=== PATIENT | female | born 1995 | race Two or more races ===

== ENCOUNTER 2018-05-11 13:49 | Outpatient (CLI) | payer BC ==
[2018-05-11 13:55] VITALS: BP 119/75
== END 2018-05-11 23:59 | disposition home or self-care (01) ==
LOC: MSC 13:49
PROVIDERS: ATTEND Internal Medicine
DX: Z00.00 Encounter for general adult medical examination without abnormal findings (principal)

== ENCOUNTER 2019-05-11 23:13 | Emergency (ER) | payer SELFPAY ==
[~2019-05-11] VITALS: Ht 162.6 cm; Wt 59.0 kg
[2019-05-11 23:16] VITALS: BP 107/62
[2019-05-11] MEDS ORDERED: ACETAMINOPHEN ES 500 MG TABLET ONE (23:38)
[2019-05-12] MEDS ORDERED: ACETAMINOPHEN ES 500 MG TABLET PO ONE
== END 2019-05-11 23:48 | disposition home or self-care (01) ==
LOC: ER 23:16
DX: S06.0X0A Concussion without loss of consciousness, initial encounter (principal); S09.8XXA Other specified injuries of head, initial encounter; W50.1XXA Accidental kick by another person, initial encounter; Y93.41 Activity, dancing; Y92.89 Other specified places as the place of occurrence of the external cause; Y99.8 Other external cause status